=== PATIENT | female | born 1950 | race Caucasian/White ===

== ENCOUNTER 2019-03-02 10:20 | Emergency (ER) | payer MEDICARE ==
--- NOTE | 2019-03-02 10:25 | EDM.PDOC ---
ED HPI GENERAL MEDICAL PROBLEM - General Chief Complaint: Lower Extremity Injury/Pain Stated Complaint: FOOT INFECTION Time Seen by Provider: 03/02/19 10:24 Source of Information: Reports: Patient History Limitations: Reports: No Limitations - History of Present Illness INITIAL COMMENTS - FREE TEXT/NARRATIVE: HISTORY AND PHYSICAL: History of present illness: Patient is a 68-year-old female who presents to the emergency room with complaints of a sore to her right second toe. She states she has been traveling from [place] and yesterday noticed a small sore to the top of her second toe. She is type II diabetic and does monitor her skin closely. She is concerned that this may turn into an ear infection and wanted to be evaluated today as she does leave tomorrow to return to [place]. She denies any injury, trauma or falls. She does have neuropathy, normal variance. Denies any calf pain or lower extremity tenderness. Patient denies any fever, chills, headache, change in vision, syncope or near syncope. Denies any chest pain, back pain, shortness of breath or cough. Denies any abdominal pain, nausea, vomiting, diarrhea, constipation or dysuria. Has not noted any blood in urine or stool. Patient has been eating and drinking appropriately. Tdap UTD Review of systems: As per history of present illness and below otherwise all systems reviewed and negative. Past medical history: As per history of present illness and as reviewed below otherwise noncontributory. Surgical history: As per history of present illness and as reviewed below otherwise noncontributory. Social history: See social history for further information Family history: As per history of present illness and as reviewed below otherwise noncontributory. Physical exam: General: Well-developed and well-nourished 68-year-old female. Alert and oriented. Nontoxic appearing and in no acute distress. HEENT: Atraumatic, normocephalic, pupils equal and reactive bilaterally, negative for conjunctival pallor or scleral icterus, mucous membranes moist, trachea midline. No drooling or trismus noted. No meningeal signs. No hot potato voice noted. Lungs: Clear to auscultation, breath sounds equal bilaterally, chest nontender. Heart: S1S2, regular rate and rhythm without overt murmur Abdomen: Soft, nondistended, nontender. Skin: Patient does have a 1 cm abrasion to the top of her right second toe. Mild erythema around the abrasion. Capillary refill less than 3 seconds. Unable to express any drainage, nonfluctuant. Otherwise skin is intact, warm, dry. No lesions or rashes noted. Extremities: Atraumatic, moves all extremities per self without difficulty or deficits, negative for cords or calf pain. +1 pitting edema bilaterally. Bilateral lower extremities are comparable. Neurovascular unremarkable. Neuro: Awake, alert, oriented. Cranial nerves II through XII unremarkable. Cerebellum unremarkable. Motor and sensory unremarkable throughout. Exam nonfocal. Notes: We'll place patient on an oral antibiotic. We discussed monitoring the area closely. She states she does fly out tomorrow to return home in [place]. She will follow-up with her primary care provider for reevaluation and further management of this. Supportive care measures were reviewed and discussed. Voices understanding and is agreeable to plan of care. Denies any further questions or concerns at this time. Diagnostics: None Therapeutics: Wound Care Prescription: Keflex Impression: Localized Skin Infection Plan: 1. Keep the skin clean and dry. Continue to monitor for signs of improvement. 2. Take the antibiotic as prescribed. 3. Tylenol and/or ibuprofen as needed for pain management. 4. Follow-up with your primary care provider as we discussed. Return to the ED as needed and as discussed. Definitive disposition and diagnosis as appropriate pending reevaluation and review of above. - Related Data Allergies Allergy/AdvReac Type Severity Reaction Status Date / Time latex Allergy Itching Verified 03/02/19 10:30 nickel Allergy Itching Verified 03/02/19 10:30 Sulfa (Sulfonamide Allergy Anaphylactic Verified 03/02/19 10:30 Antibiotics) Shock Home Meds: Home Meds Aspirin [Halfprin] 1 tab PO DAILY 03/02/19 [History] Cholecalciferol (Vitamin D3) [Vitamin D3] 1 tab PO DAILY 03/02/19 [History] Cholecalciferol (Vitamin D3) [Vitamin D] 50,000 unit PO WEEKLY 03/02/19 [History ] Glimepiride 1 tab PO DAILY 03/02/19 [History] Lisinopril 1 tab PO DAILY 03/02/19 [History] Metoprolol Succinate 1 tab PO DAILY 03/02/19 [History] atorvaSTATin [Lipitor] 1 tab PO DAILY 03/02/19 [History] metFORMIN HCl [Metformin HCl ER] 4 tab PO DAILY 03/02/19 [History] Review of Systems - Review of Systems Review Of Systems: ROS reveals no pertinent complaints other than HPI. ED EXAM, GENERAL - Physical Exam Exam: See Below (See dictation) Course - Vital Signs Last Recorded V/S: Last Vital Signs Temp 96.7 F 03/02/19 10:25 Pulse 67 03/02/19 10:25 Resp 16 03/02/19 10:25 BP 162/86 H 03/02/19 10:25 Pulse Ox 97 03/02/19 10:25 Departure - Departure Time of Disposition: 10:41 Disposition: Home, Self-Care 01 Clinical Impression: Localized infection of skin - Discharge Information Instructions: Cellulitis, Adult, [id number] Referrals: PCP,Unknown [Primary Care Provider] - Forms: ED Department Discharge Additional Instructions: The following information is given to patients seen in the emergency department who are being discharged to home. This information is to outline your options for follow-up care. We provide all patients seen in our emergency department with a follow-up referral. The need for follow-up, as well as the timing and circumstances, are variable depending upon the specifics of your emergency department visit. If you don't have a primary care physician on staff, we will provide you with a referral. We always advise you to contact your personal physician following an emergency department visit to inform them of the circumstance of the visit and for follow-up with them and/or the need for any referrals to a consulting specialist. The emergency department will also refer you to a specialist when appropriate. This referral assures that you have the opportunity for follow-up care with a specialist. All of these measure are taken in an effort to provide you with optimal care, which includes your follow-up. Under all circumstances we always encourage you to contact your private physician who remains a resource for coordinating your care. When calling for follow-up care, please make the office aware that this follow-up is from your recent emergency room visit. If for any reason you are refused follow-up, please contact the [facility] Emergency Department at and asked to speak to the emergency department charge nurse. [facility] [address] [place] [address] [id number] [address] [id number] 1. Keep the skin clean and dry. Continue to monitor for signs of improvement. 2. Take the antibiotic as prescribed. 3. Tylenol and/or ibuprofen as needed for pain management. 4. Follow-up with your primary care provider as we discussed. Return to the ED as needed and as discussed.
== END 2019-03-02 10:49 | disposition home or self-care (01) ==
LOC: MW.ED 10:20
DX: L08.9 Local infection of the skin and subcutaneous tissue, unspecified (principal); Z91.040 Latex allergy status; Z88.2 Allergy status to sulfonamides; Z88.8 Allergy status to other drugs, medicaments and biological substances; Z79.82 Long term (current) use of aspirin; Z79.899 Other long term (current) drug therapy
CPT/HCPCS: 99283